=== PATIENT | female | born 1965 | race Caucasian/White ===

== ENCOUNTER → 2017-01-29 | Outpatient (CLI) | payer BC ==
--- NOTE | 2017-01-29 14:09 | P.HPOB ---
History of Present Illness H&P Date: 01/29/17 Chief Complaint: The patient is here for her routine gynecologic exam and mammogram. This is a 51 year old with an LMP of 01/15/2017. She is status post tubal ligation. She is without gynecologic complaints. Her periods are regular every month. She denies hot flashes. Review of Systems She denies respiratory cardiac or G.I. problems. Past Medical History Past Medical History: Diabetes Mellitus, Hypertension, Thyroid Disorder History of Any Multi-Drug Resistant Organisms: None Reported Past Surgical History: Breast Surgery, Section Additional Past Surgical History / Comment(s): breast lump removed - benign. upper thigh lump removed. tailbone lump removed. colonoscopy 2014. thyroid biopsy in 2016 which was benign Past Anesthesia/Blood Transfusion Reactions: No Reported Reaction Smoking Status: Never smoker Past Alcohol Use History: Occasional (She has about 9 to 10 drinks per week), Rare Past Drug Use History: None Reported Medications and Allergies Home Medications Medication Instructions Recorded Confirmed Type Aspirin 81 mg PO DAILY 06/03/15 06/10/15 History Insulin NPL/Insulin Lispro 0 unit SQ CONTINUOUS 06/03/15 06/10/15 History [humaLOG MIX 75-25 VIAL] Insulin Regular [HumuLIN R] 0 units SQ DIRECTED 06/03/15 06/10/15 History Lisinopril [Zestril] 20 mg PO DAILY 06/03/15 06/10/15 History Metoprolol Tartrate [Lopressor] 50 mg PO DAILY 06/03/15 06/10/15 History Multivitamins, Thera [Theragran] 1 each PO DAILY 06/03/15 06/10/15 History Allergies Allergy/AdvReac Type Severity Reaction Status Date / Time cephalexin monohydrate Allergy Rash/Hives Verified 06/10/15 12:34 [From Keflex] sulfamethoxazole Allergy Rash/Hives Verified 06/10/15 12:34 [From Bactrim] tetanus toxoid, adsorbed Allergy Rash/Hives Verified 06/10/15 12:34 trimethoprim [From Bactrim] Allergy Rash/Hives Verified 06/10/15 12:34 Exam - Vital Signs Vital signs: Blood pressure 148/74, height 5'3", weight 144 pounds, texture 98.6, pulse 84. This is a well-developed well-nourished white female who is alert and oriented times 3 in no acute distress. HEENT: Within normal limits. NECK: Supple without mass or thyromegaly. CHEST AND LUNGS: Clear to auscultation. HEART: Regular rate and rhythm. BREASTS: Are without mass or discharge. AXILLARY EXAM: Negative for adenopathy. BACK: Negative for CVA tenderness. ABDOMEN: Soft, nontender, without palpable masses. PELVIC EXAM: Normal external genitalia []. Cervix and vagina appear normal []. There is no unusual discharge. The uterus is midposition, nongravid size and nontender. There are no palpable adnexal masses or tenderness. RECTAL EXAM: [] negative for master tenderness and is negative for occult blood. EXTREMITIES: Nontender. IMPRESSION: 1. 51 year old female who is premenopausal and has in normal gynecologic exam. She is status post tubal ligation. PLAN: 1. Pap smear was performed. 2. Self breast examination was discussed. 3. Mammogram will be done today. 4. Osteoporosis prevention was discussed. 5. She will return in one year. She was also instructed to call if she is having menstrual problems or menopausal change problems.
--- NOTE | 2017-01-31 09:57 | MM ---
Reason for exam: screening (asymptomatic). Last mammogram was performed 1 year ago. History: Benign excisional biopsy of the left breast, 1992. Physical Findings: A clinical breast exam by your physician is recommended on an annual basis and results should be correlated with mammographic findings. MG 3D Screening Mammo W/Cad Bilateral CC and MLO view(s) were taken. Prior study comparison: February 08, 2016, bilateral MG 3d screening mammo w/cad. January 11, 2015, bilateral MG screening mammo w CAD. February 26, 2013, bilateral digital screening mammo w/CAD. The breast tissue is heterogeneously dense. This may lower the sensitivity of mammography. No significant changes when compared with prior studies. ASSESSMENT: Negative, BI-RAD 1 RECOMMENDATION: Routine screening mammogram of both breasts in 1 year.
== END | disposition home or self-care (01) ==
LOC: WWCWWP 13:13
PROVIDERS: ATTEND Obstetrics & Gynecology
DX: Z12.31 Encounter for screening mammogram for malignant neoplasm of breast (principal)
CPT/HCPCS: 77063; G0202

== ENCOUNTER → 2018-03-18 | Outpatient (CLI) | payer BC ==
[2018-03-18 16:14] VITALS: BP 139/59; PULSE 77; TEMP 98
--- NOTE | 2018-03-18 16:59 | P.HPOB ---
History of Present Illness H&P Date: 03/18/18 Chief Complaint: The patient is here for her routine gynecologic exam and mammogram. This is a 52-year-old with an LMP of 01/07/2018. The patient states her menses were regular every month until December. She is status post tubal ligation. She denies any significant hot flashes. Review of Systems The patient has gained 4 pounds over the last year. She denies respiratory, cardiac, or G.I. problems. 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 History of Any Multi-Drug Resistant Organisms: None Reported Past Surgical History: Breast Surgery (benign breast lump removed), Section, Tubal Ligation Additional Past Surgical History / Comment(s): upper thigh lump removed. pilonidal cyst removed from the tailbone area. colonoscopy 2014. thyroid biopsy in 2016 which was benign. 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 - Past Family History Father Family Medical History: Myocardial Infarction (NC) Additional Family Medical History / Comment(s): Grandfather had [place] Mother Family Medical History: Diabetes Mellitus Sister(s) Family Medical History: Diabetes Mellitus Medications and Allergies Home Medications Medication Instructions Recorded Confirmed Type Aspirin 81 mg PO DAILY 06/03/15 03/18/18 History Insulin NPL/Insulin Lispro 0 unit SQ CONTINUOUS 06/03/15 03/18/18 History [humaLOG MIX 75-25 VIAL] Insulin Regular [HumuLIN R] 0 units SQ DIRECTED 06/03/15 03/18/18 History Lisinopril [Zestril] 20 mg PO DAILY 06/03/15 03/18/18 History Metoprolol Tartrate [Lopressor] 50 mg PO DAILY 06/03/15 03/18/18 History Multivitamins, Thera [Theragran] 1 each PO DAILY 06/03/15 03/18/18 History Calcium Carbonate [Calcium] PO DAILY 03/18/18 History Allergies Allergy/AdvReac Type Severity Reaction Status Date / Time cephalexin monohydrate Allergy Rash/Hives Verified 03/18/18 16:09 [From Keflex] sulfamethoxazole Allergy Rash/Hives Verified 03/18/18 16:09 [From Bactrim] tetanus toxoid, adsorbed Allergy Rash/Hives Verified 03/18/18 16:09 trimethoprim [From Bactrim] Allergy Rash/Hives Verified 03/18/18 16:09 Exam Vital Signs Temp Pulse BP 03/18/18 16:11 98.0 F 77 139/59 Intake and Output 03/18/18 03/18/18 03/18/18 06:59 14:59 22:59 Other: Weight 67.132 kg Height 5'3", BMI 26. This is a well-developed well-nourished white female who is alert and oriented times 3 in no acute distress. HEENT: Within normal limits. NECK: Supple without mass or thyromegaly. CHEST AND LUNGS: Clear to auscultation. HEART: Regular rate and rhythm. BREASTS: Are without mass or discharge. AXILLARY EXAM: Negative for adenopathy. BACK: Negative for CVA tenderness. ABDOMEN: Soft, nontender, without palpable masses. There is a external insulin pump with an abdominal subcutaneous insertion. The site is non-erythematous. PELVIC EXAM: Normal external genitalia with mild atrophy. Cervix and vagina appear normal with minimal atrophy. There is no unusual discharge. There is no evidence of prolapse. The uterus is midposition, nongravid size and nontender. There are no palpable adnexal masses or tenderness. RECTAL EXAM: rectovaginal exam is negative for mass or tenderness and is negative for occult blood. EXTREMITIES: Nontender. IMPRESSION: 1. 52-year-old perimenopausal female with recent oligomenorrhea. 2. The patient is status post tubal sterilization. PLAN: 1. Pap smear was deferred since she had a normal one last year. 2. Self breast awareness was discussed with the patient. 3. Screening mammogram will be done today. 4. Osteoporosis prevention was discussed. 5. She will return in one year.
--- NOTE | 2018-03-20 13:13 | MM ---
Reason for exam: screening (asymptomatic). Last mammogram was performed 1 year and 2 months ago. History: Benign excisional biopsy of the left breast, 1992. Physical Findings: A clinical breast exam by your physician is recommended on an annual basis and results should be correlated with mammographic findings. MG 3D Screening Mammo W/Cad Bilateral CC and MLO view(s) were taken. Prior study comparison: January 29, 2017, bilateral MG 3d screening mammo w/cad. February 08, 2016, bilateral MG 3d screening mammo w/cad. The breast tissue is heterogeneously dense. This may lower the sensitivity of mammography. No significant changes when compared with prior studies. ASSESSMENT: Benign, BI-RAD 2 RECOMMENDATION: Routine screening mammogram of both breasts in 1 year.
== END | disposition home or self-care (01) ==
LOC: WWCWWP 15:57
PROVIDERS: ATTEND Obstetrics & Gynecology
DX: Z12.31 Encounter for screening mammogram for malignant neoplasm of breast (principal)
CPT/HCPCS: 77063; 77067

== ENCOUNTER → 2018-09-10 | Outpatient (CLI) | payer BC ==
[2018-09-10 17:30] LABS: Albumin 3.7 g/dL (3.80-4.90); Albumin/Globulin Ratio 1.85 (1.60-3.17); Anion Gap 8.2 mmol/L (4.00-12.00); Calcium 9.2 mg/dL (8.7-10.3); Carbon Dioxide 26.8 mmol/L (21.6-31.8); Potassium 4.7 mmol/L (3.5-5.5); Total Bilirubin 0.4 mg/dL (0.2-1.2); Total Protein 5.7 g/dL (6.2-8.2)
[2018-09-10 18:01] LABS: Hepatitis C IgG Antibody Non-Reactive (Non-Reactive)
== END ==
LOC: LABWHC1 07:26
PROVIDERS: ATTEND Family Medicine
DX: Z00.01 Encounter for general adult medical examination with abnormal findings (principal)
CPT/HCPCS: 36415; 80053; 80061; 86706; 86803